=== PATIENT | female | born 1965 | race Caucasian/White ===

== ENCOUNTER 2016-05-27 04:12 | Inpatient (IN) | payer OTHER, MEDICAID ==
[~2016-05-27] VITALS: Ht 165.1 cm; Wt 101.3 kg
--- NOTE | 2016-05-27 04:16 | ED.REPORT ---
HPI-Altered Mental Status Date of Service May 27, 2016 ED Provider: Dr. Manoj Mock M.D. A 51 year old female with a history of bipolar disorder presents to the ED via EMS from [facility] with altered mental status onset approximately 0400 this morning. The patient reports waking up around 0300 feeling totally normal. The staff at her assisted living home then noticed she began slurring her speech and acting abnormally. They measured her BP at 82 systolic. 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 En route the patient was initially mildly hypoxic ( 91%), in sinus rhythm rate 80, with a BP of 103 systolic. She was given 4 mg Zofran by EMS. The patient now reports right-sided weakness, abdominal pain, nausea, and vomiting. She further states that she has had vomiting for about three days. She denies headache. She has had no blood in vomit or stool. No other complaints on pertinent review. She is a very poor historian and reliability is uncertain. Nursing Notes Stated Complaint: CODE STROKE Nursing Notes Reviewed: Yes Allergies: Coded Allergies: Penicillins (Verified Allergy, Unknown, 04/03/13) Uncoded Allergies: NA (Allergy, Unknown, 11/03/03) PCN (Allergy, Unknown, 11/03/03) Penicillin (Allergy, Unknown, 11/03/03) General Time Seen by MD: 04:16 Transferred From: custodial Chief Complaint Decreased responsiveness Hx Obtained From: Patient, EMS Arrived By: Ambulance Sudden in Onset?: Yes Onset Occurred: Just prior to arrival Symptom Duration: Since onset Location: : Abdomen Quality: Painful Severity: Current: Moderate Severity: Maximum: Moderate Associated with: Reports: Weakness, Denies: Fever Pertinent Negative: Relieved by nothing Recent Healthcare: No recent doctor visit Risk Factors NIH Stroke Scale Level of Consciousness: Alert and responsive (0) Ask Month & Age: Both questions right (0) Open/Close Eyes/Hand Explosives Detonator: Performs both tasks (0) Horizontal EO Movements: None (0) Visual Myles: Partial hemianopsia (1) Facial Palsy: Partial paral, lower (2) Right Arm Motor Drift (10s): Drift, not touch bed (1) Left Arm Motor Drift (10s): No drift 10 sec (0) Right Leg Motor Drift (5s): Drift, hits bed (2) Left Leg Motor Drift (5s): No drift 5 sec (0) Limb Ataxia FNF/Heel-Velasquez: Ataxia in 2 limbs (2) Sensation (Arms/Legs/Face): P-prick dull but felt (1) Language Aphasia: No aphasia, normal (0) Dysarthria: Slurring intelligible (1) Extinction/Inattention: No exctinct/inattent (0) NIHSS Score: 10 Time NIHSS Performed: 04:33 Date NIHSS Performed: May 27, 2016 Past Medical History Past Medical History Bipolar disorder Suicidal Ideation Past Surgical History None reported Smoking History Never Smoker Social History Alcohol Use: Denies alcohol use Other Social History: Lives in snf Review of Systems Review of Systems Note: + Facial asymmetry Constitutional: Denies: Fever GI: Reports: Abdominal pain, Nausea, Vomiting Neurologic: Reports: Slurred speech, Weakness (Right-sided ) Psychiatric: Reports: Change mental status Complete sys rev & neg: except as marked. Physical Exam Physical Exam Notes: Initial Vital Signs Vital Signs (First) Date Time Temp Pulse Resp B/P Pulse Ox O2 Delivery O2 Flow Rate FiO2 05/27/16 04:28 36.9 88 14 99/70 98 Nasal Cannula 2 Initial VS: Reviewed Abdomen / GI: Soft, Non-tender Skin: Warm, Dry Psychiatric: Mood/affect normal, Behavior normal, Normal thought content General/Constitutional: Awake, Alert Head / Eyes: Atraumatic, Normocephalic, EOMI Neck: Supple, Full range of motion Respiratory / Chest: Breath sounds NL, Breath sounds = bilat, No respiratory distress Cardiovascular: Heart rate NL, Regular rhythm, Heart sounds NL Neurologic: Oriented X3 Speech: Positive: Slurred (Mild), Negative: Expressive aphasia Focal Weakness: Positive: Weakness diffuse R (Worst in right leg) Sensory Deficit: Positive: Lower extremity L, Upper extremity R Cerebellar Dysfunction: Negative: Ataxia central Right-sided facial droop Left-sided partial hemianopsia Interpretation & Diagnostics Lab Results Interpretation Result Diagram: 05/27/1641905/27/16419 Test 05/27/16 04:20 White Blood Count 6.9th/mm3 (3.8-10.1) Red Blood Count 4.10mil/mm3 (3.90-5.20) Hemoglobin 12.0g/dL (12.0-15.6) Hematocrit 35.4% (35.0-46.0) Mean Corpuscular Volume 86.3fL (81-100) Mean Corpuscular Hemoglobin 29.3pg (27.0-35.0) Mean Corpuscular Hemoglobin Concent 33.9% (32.0-37.0) Red Cell Distribution Width 12.0% (12.3-15.4) Platelet Count 201bil/L (150-400) Neutrophils (%) (Auto) 42.0% (40-74) Lymphocytes (%) (Auto) 45.4% (14-46) Monocytes (%) (Auto) 9.3% (4-12) Eosinophils (%) (Auto) 2.3% (0-5) Basophils (%) (Auto) 0.3% (0-3) Prothrombin Time 10.1sec (8.1-12.5) Prothromb Time International Ratio 0.95ratio Activated Partial Thromboplast Time 28.8sec (22.8-33.0) Sodium Level 128mEq/L (134-144) Potassium Level 3.0mEq/L (3.5-5.2) Chloride Level 89mEq/L (97-108) Carbon Dioxide Level 26mmol/L (18-29) Blood Urea Nitrogen 6mg/dL (6-24) Creatinine 0.73mg/dL (0.57-1.00) Estimat Glomerular Filtration Rate 121mL/min (>59) Glucose Level 122mg/dL (60-99) Calcium Level 8.7mg/dL (8.5-10.1) Total Bilirubin 0.3mg/dL (0.0-1.2) Aspartate Amino Transf (AST/SGOT) 20U/L (0-50) Alanine Aminotransferase (ALT/SGPT) 24U/L (0-32) Alkaline Phosphatase 63U/L (25-150) Troponin T 0.010ug/L (0.0-0.011) Total Protein 6.8g/dL (6.4-8.4) Albumin 4.0g/dL (3.4-5.0) Alcohol, Quantitative < 10mg/dL (0-10) ECG Interpretation ECG Interpretation: Sinus rhythm rate 87 Prolonged QT interval Nonspecific T-wave flattening laterally Time: 04:43 Interpreted by: ED physician X-Ray Chest Interpretation Chest Xray Interpretation: Nothing acute View: Portable, 1 view Interpretation / Wet Read by: Wet read ED physician CT Head Interpretation CONCLUSION: No CT evidence of acute intracranial pathology Critical Test acknowledged at 05/27/2016 4:27 20 AM PST. Verbal report given to Dr. Mock at 05/27/2016 4:27:21 AM PST Radiologist Rashi Muller M.D. Study: Head CT no contrast Interpretation / Wet Read by: Interpret - Radiologist CT Abd / Pelvis Interpretation CONCLUSION: Cholelithiasis without CT evidence of cholecystitis. Diverticulosis without CT evidence of diverticulitis. Transmitted to ED by Rashi Muller M.D. at 05/27/2016 - 5:09:39 AM PST Study type: Abdominal CT no contrast Interpretation / Wet Read by: Interpret - Radiologist Re-Eval/Medical Decision Med Decision/Clinical Course 51-year-old female with bipolar illness presents with new onset right-sided weakness leg worsen arm worse than face. There is also sensory loss, ataxia, and dysarthria. This appears to be consistent with a left middle cerebral artery stroke. Stroke score initially as ten. Risk benefits alternatives discussed at some length with her and she is agreeable to TPA therapy. She complained at that time of the abdominal discomfort, and was urgently placed in the scanner again for a noncontrast abdomen, to be sure that there was not some aortic issue or other abdominal disaster prior to TPA application. That was negative except for gallstones without evidence of cholecystitis, and she was returned to the department promptly and TPA initiated. Needle time was 0523. She complains of scoliosis headache and Tylenol IV was given. She was then taken for her planned CTA of neck and head per protocol. She is admitted now to the ICU purple team and critical condition. Re-Evaluation/Progress #1: Time of Eval: 04:48 Patient Status: Condition improved Re-Evaluation/Progress Note: Discussed with patient possibility for TPA. She wishes to pursue this treatment. Re-Evaluation/Progress #2: Time of Eval: 05:13 Re-Evaluation/Progress Note: Patient rechecked. Discussed with patient CT results, diagnosis, and plan for TPA treatment. Re-Evaluation/Progress #3: Time of Eval: 05:23 Re-Evaluation/Progress Note: TPA administered. Discussed with patient CT, lab, and x-ray results, diagnosis, and plan for admit. Patient agrees with plan for care and all questions were addressed. Consultation : Consulted With: Neurology Call Returned at: 05:22 Filter Plant Operator: Agrees with eval, Agrees with plan Note: [facility]: There are no beds available. Counseled Regarding: Diagnosis, Lab results, Need for admission Patient Discharge & Departure Impression: Primary Impression: Left middle cerebral artery stroke Disposition: ADMITTED TO HOSPITAL Discharge Condition All VS Reviewed: Yes Condition: Critical Referrals: Renita Shannon MD (PCP) Crit Care Except Billable Proc Time Spent: 30-74 minutes (60) Services Performed: Patient management by me, Time spent at bedside, Reviewing test results, Reviewing imaging, Discussing patient care, Documentation in record Scribe Attestation Portions of this note were transcribed by Winnie Man. I, Dr. Mock, personally performed the history, physical exam, and medical decision-making; I reviewed and confirmed the accuracy of the information in the transcribed note. Signed by: Lindy Elkins, 05/27/2016, 06:00 copies to: Renita Shannon MD, Christopher W MD May 27, 2016 04:16 WINNIE MAN May 27, 2016 04:44
[2016-05-27 04:28] VITALS: BP 99/70; PULSE 88; RESP 14; O2SAT 98
[2016-05-27 04:29] LABS: BASOPHILS % (AUTO) 0.3 % (0-3); EOSINOPHILS % (AUTO) 2.3 % (0-5); MONOCYTES % (AUTO) 9.3 % (4-12); Mean Corpuscular Hemoglobin 29.3 pg (27.0-35.0); Mean Corpuscular Volume 86.3 fL (81-100); Platelet Count 201 bil/L (150-400)
[2016-05-27 04:47] LABS: INR 0.95 ratio
[2016-05-27 04:51] LABS: TROPONIN T 0.01 ug/L (0.0-0.011)
[2016-05-27] MEDS ORDERED: Alteplase (No Charge) 1 mg/mL Syringe IV ONE (05:30)
[2016-05-27] MEDS ORDERED: Alteplase (TPA) Inj 81 MG in IV Premix 1 EACH IV ONE (05:31)
[2016-05-27] MEDS ORDERED: Acetaminophen IV 1,000 MG in IV Premix 1 EACH IV ONE (05:50)
[2016-05-27] MEDS ORDERED: 0.9% Sodium Chloride 250 ML ONE (06:20)
[2016-05-27 07:15] VITALS: BP 109/69; PULSE 87; RESP 18; O2SAT 97
[2016-05-27] MEDS ORDERED: Polyethylene Glycol (PEG) 17 Gm Powder PO PRN (07:40)
[2016-05-27] MEDS ORDERED: Ondansetron 2 mg/mL 2 mL Inj IVPUSH PRN (07:40)
[2016-05-27 08:18] VITALS: BP 102/77; PULSE 84; RESP 11; O2SAT 99
[2016-05-27] MEDS ORDERED: BENZ100C8 PO (08:32)
[2016-05-27] MEDS ORDERED: MIRT15TA6 PO (08:32)
[2016-05-27] MEDS ORDERED: CHOL100043 PO (08:32)
[2016-05-27] MEDS ORDERED: KLO5T PO (08:32)
[2016-05-27] MEDS ORDERED: REGULOID PO (08:32)
[2016-05-27] MEDS ORDERED: CITA20TA11 PO (08:32)
[2016-05-27] MEDS ORDERED: HYOS0.1216 PO (08:32)
[2016-05-27] MEDS ORDERED: RISP2TAB3 PO (08:32)
[2016-05-27] MEDS ORDERED: BACL10TA PO (08:32)
[2016-05-27] MEDS ORDERED: MULT-1008 PO (08:32)
[2016-05-27] MEDS ORDERED: OMEP20CA11 PO (08:32)
[2016-05-27] MEDS ORDERED: DONE10TA42 PO (08:32)
[2016-05-27] MEDS ORDERED: LORA10CA PO (08:32)
--- NOTE | 2016-05-27 09:08 | DRSVH ---
PROCEDURE: X-RAY CHEST ONE VIEW, PORTABLE ([id number]) INDICATIONS: SLURRED SPEECH TECHNIQUE: One view of the chest was acquired. COMPARISON: [facility], CR, XR CHEST 2VW, 11/04/2015, 11:59. [facility], CR , CHEST 2VW, 05/31/2013, 20:53. FINDINGS: Surgical changes and devices: None. Lungs and pleura: No pleural effusions or pneumothorax. Lungs are clear. Mediastinum: Mediastinal contours appear normal. Heart size is normal. Bones and chest wall: No suspicious bony lesions. Overlying soft tissues appear unremarkable. IMPRESSION: No acute cardiopulmonary disease. Dictated by: Ran CARBAJAL Interpreted: Liudmila Souza MD on 05/27/2016 at 9:07 Transcribed by: CARMEN on 05/27/2016 at 9:08 Approved by: Liudmila Souza M.D. on 05/27/2016 at 16:54
[2016-05-27] MEDS ORDERED: 0.9% Sodium Chloride 1,000 ML IV SCH (09:25)
[2016-05-27] MEDS ORDERED: KCL IV ONE (09:25)
[2016-05-27] MEDS ORDERED: [UNRECOGNIZED DRUG - OTHER] IV ONE (09:25)
[2016-05-27 09:42] VITALS: BP 122/74; PULSE 74; RESP 11; O2SAT 95
[2016-05-27] MEDS ORDERED: KCl 40 mEq/D5W 500 mL 40 MEQ in IV Premix 500 EACH IV ONE (10:15)
--- NOTE | 2016-05-27 10:42 | DRSVH ---
PROCEDURE: CT BRAIN (TPA) ([id number]) INDICATIONS: SLURRED SPEECH TECHNIQUE: Noncontrast 4.5 mm thick angled axial sections acquired from the foramen magnum to the vertex, with c oronal reformats. COMPARISON: [facility], CT, CT HEAD WO CONTRAST, 04/16/2016, 9:24 PM. FINDINGS: Image quality: Excellent. CSF spaces: Basal cisterns are patent. No extra-axial fluid collections. Ventricles are normal in size and shape. Brain: No midline shift. No intracranial masses or hemorrhage. Villatoro-white matter interface is norm al. Skull and face: Calvarium and visualized facial bones are intact, without suspicious lesions. Sinuses: Visualized sinuses and mastoids are clear. IMPRESSION: 1. No acute intracranial process. This study fulfills neurological imaging criteria for inclusion or exclusion of acute stroke therapie s based on available published neurological imaging guidelines. Dictated by: Liudmila Souza M.D. on 05/27/2016 at 10:39 Approved by: Liudmila Souza M.D. on 05/27/2016 at 10:40
--- NOTE | 2016-05-27 10:54 | DRSVH ---
PROCEDURE: CT ABDOMEN AND PELVIS WITHOUT CONTRAST ([id number]) INDICATIONS: pain TECHNIQUE: Noncontrast 5 mm thick sections acquired from the diaphragms to the symphysis. 5 mm coronal and sagi ttal reformats were then performed. For radiation dose reduction, the following was used: automated exposure control, adjustment of mA and/or kV according to patient size. COMPARISON: [facility], CT, ABD/PELVIS W/CON (PN), 10/15/2013, 20:00. FINDINGS: Image quality: Excellent. ABDOMEN: Lung bases: Lung bases are clear. Heart size is normal. Solid organs: Liver and spleen are normal in size. Gallbladder demonstrates an unchanged prominent calcifications without wall thickening. Pancreas is normal in contours. No adrenal nodules. Kidney s are normal in size, without hydronephrosis or nephrolithiasis. Peritoneum and bowel: Unenhanced bowel loops demonstrate normal wall thickness and caliber. No free fluid or air. Diverticula are present without associated inflammatory change. Nodes and vessels: No retroperitoneal or mesenteric adenopathy by size criteria. Aorta and inferior vena cava are normal in caliber. Miscellaneous: No ventral hernias. PELVIS: Genitourinary: Bladder wall thickness is normal. Miscellaneous: No inguinal hernias or adenopathy. Bones: No suspicious bony lesions. No vertebral body compression fractures. IMPRESSION: 1. Unchanged cholelithiasis without evidence of cholecystitis. 2. Diverticulosis. Dictated by: Liudmila Souza M.D. on 05/27/2016 at 10:40 Approved by: Liudmila Souza M.D. on 05/27/2016 at 10:52
--- NOTE | 2016-05-27 11:03 | DRSVH ---
PROCEDURE: CT ANGIO BRAIN NECK TPA INDICATIONS: headache,given TPA TECHNIQUE: Pre-contrast 4.5 mm thick sections acquired from the foramen magnum to the vertex. After the adminis tration of intravenous contrast, 1 mm thick sections acquired from the aortic arch through the [place]. Post-contrast 4.5 mm thick sections then re-acquired from the foramen magnum to the vert ex. 3-dimensional fjxrkdj-ozbhsfsyh-vbyxgdbjef (MIP) and/or volume rendering reformats were acquired of the central intracranial vasculature and neck separately. For radiation dose reduction, the foll owing was used: automated exposure control, adjustment of mA and/or kV according to patient size. COMPARISON: None. FINDINGS: Image quality: Excellent. The ventricular system and cortical sulci demonstrate atrophy, consistent for the patient's stated ag e. There are areas of hypodensity within the periventricular and subcortical white matter. There is no acute intra-or extra axial fluid collection. No acute hemorrhage, mass lesion or midline shift. Br ainstem is unremarkable. Globes are symmetrical. Sinuses are aerated. Osseous structures are intact. The posterior circulation demonstrates a left vertebral artery dominance. Basilar artery and posterio r cerebral arteries demonstrate no areas of hemodynamically significant stenosis, vascular occlusion or aneurysmal dilation. Posterior communicating arteries are within normal limits. The anterior circulation, including the anterior and middle cerebral arteries, as well as internal ca rotid arteries demonstrates no areas of hemodynamically significant stenosis, vascular occlusion or a neurysmal dilation. The origins of the left and right common, internal and external carotid arteries demonstrate no areas of hemodynamically significant stenosis, vascular occlusion or aneurysmal dilation. Origins of the l eft and right vertebral arteries demonstrate no areas of hemodynamically significant stenosis, vascul ar occlusion or aneurysmal dilation. Aortic arch demonstrates conventional anatomy. Limited, visualiz ed portions subclavian vasculature are unremarkable. IMPRESSION: 1. No acute intracranial process. 2. Mild atrophy and chronic microvascular ischemic changes. 3. No areas of hemodynamically significant stenosis, vascular occlusion or aneurysmal dilation withi n the anterior circulation. 4. No areas of hemodynamically significant stenosis, vascular occlusion or aneurysmal dilation within the posterior circulation. 5. No areas of hemodynamically significant stenosis, vascular occlusion or aneurysmal dilation within the neck vasculature. Dictated by: Liudmila Souza M.D. on 05/27/2016 at 10:56 Approved by: Liudmila Souza M.D. on 05/27/2016 at 11:02
[2016-05-27] MEDS ORDERED: DEXTROSE 5% IV PRN (11:22)
[2016-05-27] MEDS ORDERED: NITROPRUSSIDE IV PRN (11:22)
[2016-05-27] MEDS ORDERED: NiCARdipine Inj 25 MG in Dextrose 5% 240 ML IV PRN (11:22)
[2016-05-27] MEDS ORDERED: hydrALAZINE 20 mg/mL Inj IVPUSH PRN (11:25)
[2016-05-27] MEDS ORDERED: Labetalol 5 mg/mL 4 mL Inj IVPUSH PRN ×2 (11:25)
--- NOTE | 2016-05-27 11:41 | NUR ---
Evaluation completed. Please go to "Notes" then click on "Assessments and Notes" (bottom left corner of screen). Then select appropriate discipline tab on top of screen.
[2016-05-27 13:43] VITALS: BP 125/82; PULSE 92; RESP 13; O2SAT 97
[2016-05-27 14:50] LABS: Magnesium 2.2 mg/dL (1.6-2.6)
[2016-05-27] MEDS: Alum-Mag Hydrox-Simeth 30 mL Suspension PO PRN (15:25)
[2016-05-27] MEDS ORDERED: WAX BOTH_EARS (15:37)
[2016-05-27] MEDS ORDERED: ACET325C PO (15:37)
[2016-05-27] MEDS ORDERED: NPR500T PO (15:37)
[2016-05-27] MEDS ORDERED: DOCU240C41 PO (15:37)
--- NOTE | 2016-05-27 17:19 | PCM.HPMED ---
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 The patient reports waking up around 0300 feeling totally nauseous, as she had been having nausea, abdominal pain, and diarrhea for the past 2 months. The staff at her assisted living home found her vomiting in the bathroom, then noticed she began slurring her speech and acting abnormally. They measured her BP at 82 systolic. 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 En route the patient was initially mildly hypoxic (91%), in sinus rhythm rate 80, with a BP of 103 systolic. In the ER, the patient reported worsening right-sided weakness, abdominal pain, nausea, and vomiting. She further states that she has had vomiting for about three days. She denies headache. She has had no blood in vomit or stool. On admission, she reports right sided facial droop, left arm and leg weakness, bilateral fingertip numbness in all fingers, and slurred speech. She denies having symptoms like this before. She is a poor historian and reliability is uncertain. Her daughter and 2 caretakers are in the room and able to answer questions about history. In the ED, NIH Stroke Scale was 10. BP was 99/70. CBC was normal, Na was 128, K was 3, glucose was 122. Troponin was normal. EtOH was negative. EKG showed sinus rhythm at rate of 87 with QTc 526. CXR showed no acute changes. CT head showed no acute intracranial process. She complained of abdominal pain but a CT abdomen/pelvis was negative for acute process. She was started on tPA at 05:23. Repeat CTA tPA protocol was negative for acute intracranial process and negative for any arterial occlusion. PCP is Dr. Ayah Morales. Review of Systems: Comprehensive review of systems conducted and was negative except for the pertinent positives listed above. Allergies Coded Allergies: Penicillins (Verified Allergy, Unknown, 04/03/13) Uncoded Allergies: NA (Allergy, Unknown, 11/03/03) PCN (Allergy, Unknown, 11/03/03) Penicillin (Allergy, Unknown, 11/03/03) Home Medications Acetaminophen 325 mg BID PRN pain Baclofen 5 mg PO TID Benzonatate 100 mg TID Vitamin D Citalopram 20 mg daily Clonazepam 0.5 - 1 mg qhs PRN anxiety Docusate 100 mg BID Donepezil 10 mg daily Hyoscyamine 0.125 mg with dinner Loratadine 10 mg daily Mirtazapine 15 mg qhs Multivitamin Naproxen 500 mg BID PRN Omeprazole 20 mg BID Risperidone 2 mg qhs PMH Bipolar disorder Drug-induced Parkinson's History of suicidal intention Anxiety and depression Chronic pain Surgical History Hysterectomy Family History Mother - Hypothyroidism, diabetes, [place], stroke Father - Diabetes Grandmother - Hypothyroidism Social History Hx Alcohol Use: Yes (Hx alcohol abuse 20 yearas ago,.) Hx Substance Use: Yes (Distant past) Hx Tobacco Use: Yes Smoking Status: Former Smoker (Quit 5 years ago. 25 pack year history) Exam Vital Signs Vital Sign - Last Date Time Temp Pulse Resp B/P Pulse Ox O2 Delivery O2 Flow Rate FiO2 05/27/16 13:43 37.1 92 13 125/82 97 Room Air 05/27/16 07:15 2 Exam General: Alert, Oriented X3, Cooperative, No Acute Distress Head: Normocephalic, atraumatic. External ears normal. Eyes: Left-sided partial hemianopsia. Pupils reactive to light, EOMI. Anicteric sclerae. Mouth: Mouth Normal, Mucous Membranes Moist/[place] Neck: Neck supple with full range of motion. Chest & Lungs: Clear to auscultation bilaterally with no crackles, wheezes, or rhonchi. Cardiovascular: Regular Rate/Rhythm, Normal S1, Normal S2, No Murmurs/Rubs/ Gallops Abdomen: Non-tender, Non-distended, No masses, Normoactive bowel tones, Soft Musculoskeletal: Normal Range of Motion Extremities: No cyanosis/clubbing/edema bilaterally Neurological: Mildly slurred speech but still conversational. Right facial droop. Left arm weakness with dial maker strength, flexion, and extension. Left leg weakness with dorsiflexion/plantarflexion. Some delay with left hand finger- nose testing. Heel-cordova testing fairly normal but slow due to generalized and focal left leg weakness. 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 Admitted for acute stroke and received tPA. 1. Acute ischemic stroke. Present on admission. - Pt received tPA at 05:23 on 05/27/16. Initial CT and CT stroke protocol were negative for intracranial pathology or arterial occlusion. - Check vital signs and neurologic status every 15 minutes for two hours after tPA, then every 30 minutes for six hours, then every 60 minutes until 24 hours from the start of tPA - Labetalol PRN HTN. Goal BP < 180/105 mmHg during the first 24 hours. - Avoid all anticoagulant and antithrombotic agents, such as heparin, warfarin, or antiplatelet drugs for at least 24 hours after completing tPA - Avoid placement of all catheters (arterial, NG tubes, Foleys) for at least 24 hours - Follow up noncontrast CT or MRI 24 hours after initiating tPA. - Dr. Harris of Neurology has been consulted. We appreciate her input. 2. Electrolyte abnormalities, acute. Present on admission. - Pt presented with Na 128 and K 3. Given her stroke, hyponatremia, and hypokalemia, central diabetes insipidus is a possibility, but she has also had chronic vomiting and diarrhea as well. Will replace potassium as well as careful repletion of sodium and monitor closely. - NS @ 80 ml/hr - KCl 50 meq given - Monitor BMP closely 3. Abdominal pain and diarrhea, chronic. - Pt has been having abdominal pain, N/V/D for 2 months. May consider infectious diarrhea, but given her chronic nature it may be worked up outpatient. 4. GERD, chronic. - Protonix 20 mg daily 5. Bipolar disorder - Continue risperidone 6. Drug-induced Parkinson's - Continue donepezil and hyoscyamine 7. Anxiety and depression - Continue Citalopram, clonazepam, mirtazapine 8. Chronic pain - Continue baclofen 9. History of suicidal intention - Continue to monitor. - Bowel regimen as needed - Antiemetic as needed INPATIENT: Patient is admitted under inpatient status with expected length of stay greater than 2 midnights due to severity of presenting symptoms, risk of adverse event, and complexity of treatment plan. Pain Evaluation: Adequate Pain Control Resuscitation Status: CPR: Attempt Resuscitation Attending Statement The patient was seen and examined together with Dr. Romero on 05/27/2016 and I agree with the history, exam and plan as outlined in the note above. . copies to: Renita Shannon MD, Andrew R May 27, 2016 15:37 Jose Erwin MD May 28, 2016 07:45
--- NOTE | 2016-05-27 17:59 | DRSVH ---
PROCEDURE: MRI BRAIN WITHOUT CONTRAST ([id number]) INDICATIONS: post TPA TECHNIQUE: Noncontrast axial T1 spin echo, axial T2 fast spin echo, sagittal and axial FLAIR, coronal T2 fast sp in echo, axial gradient echo, axial diffusion and ADC through the brain. COMPARISON: [facility], CT, CT ANGIO BRAIN NECK TPA, 05/27/2016, 7:12. [facility], CT, BRAIN (TPA), 05/27/2016, 4:18. FINDINGS: Image quality: Excellent. CSF Spaces: Basal cisterns are patent. No extra-axial fluid collections. Ventricles are normal in size and shape. Brain: No intracranial masses or hemorrhage. Villatoro/white matter interface is normal. Brainstem appe ars normal. Diffusion-weighted images demonstrate no acute ischemic insult. No chronic ischemic ins ults. Normal intravascular flow voids are present. 5 mm left temporal focus of susceptibility artif act is present on gradient sequence. This could represent a small cavernous angioma. Skull and face: Calvarium has normal marrow signal. Orbits appear normal. Sinuses: Sinuses are clear. Mild to moderate bilateral mastoid fluid is present. IMPRESSION: 1. No acute intracranial process. No acute ischemia. 2. Bilateral mastoid fluid. Recommend correlation to mastoiditis. Dictated by: Liudmila Souza M.D. on 05/27/2016 at 17:53 Approved by: Liudmila Souza M.D. on 05/27/2016 at 17:57
--- NOTE | 2016-05-27 19:19 | NUR ---
Admit: Med rec completed with facility provided list. Pt a/o x3, moves all extremities, responds appropriately. Speech is slightly delayed at times, slight R facial droop. Community Service Officer Coordinator equal, equal strength to lower extremities, reports decreased sensation to L toes. C/o chest pressure, ECG unchanged from previous, MD aware, pressure relieved by Maalox. VSS, tele SR, RA O2 sats 98%. Up to BSC with 1p assist, tolerating activity well. Off unit for MRI, report pending. Care ongoing.
[2016-05-27] MEDS: risperiDONE 2 mg Tablet PO SCH (20:13)
[2016-05-27 20:30] VITALS: BP 135/87; PULSE 110; RESP 16; O2SAT 97
--- NOTE | 2016-05-27 23:40 | CONS ---
[address] [address] CONSULTATION REPORT PATIENT: NADEGE GARCÍA : 1965 MR#: [id number] ADMIT: 05/27/2016 JOB ID: [id number] DATE OF SERVICE: 05/27/2016 REQUESTING PHYSICIAN: Dr. Frederick for acute stroke, status post post tPA. HISTORY OF PRESENT ILLNESS: The patient is a 51-year-old female with right weakness although the patient states her weakness was on the left. I rely on the chart notes with the patient providing an inconsistent and spotty history of events. The patient has bipolar disorder and apparent drug-induced parkinsonism. It is unclear what baseline cognitive skills the patient has but notes report that she lives in a care facility. Upon arrival, the patient had emergent evaluation by emergency department staff with NIH stroke scale 10 due to right-sided symptoms of arm, leg and facial weakness, diminished sensation and dysarthria. tPA was given at 5:28 a.m after a head CT was performed and found to be negative. CTA confirmed no large vessel stenosis negating any need for transfer to [facility] for endovascular treatment. Blood pressure on arrival was 109/69 at 7:15 a.m. Further monitoring with sinus tachycardia with rate of 87, She had no side effects. The patient reports that her symptoms resolved but she cannot tell me when. PAST MEDICAL HISTORY: Bipolar disease with history of suicidal ideation. No drugs, alcohol or smoking. DRUG ALLERGIES: PENICILLIN. OUTPATIENT MEDICATIONS: 1. Acetaminophen. 2. Baclofen. 3. . 4. Vitamin D. 5. Citalopram. 6. Clonazepam. 7. Donepezil. 8. Hyoscyamine. 9. Loratadine. 10. Mirtazapine. 11. Naprosyn. 12. Risperidone. 13. Omeprazole. FAMILY HISTORY: Mother with stroke, hypothyroid, diabetes. Father with diabetes. Grandmother with hypothyroidism. SOCIAL HISTORY: The patient has history of alcohol abuse 20 years ago and is a former smoker. PHYSICAL EXAMINATION: The patient is alert and oriented x3, cooperative, in no apparent distress. Vital signs: Blood pressure 125/82, pulse 92, respiratory rate 13, pulse oximetry 97% on room air. Head: Normocephalic, atraumatic. No evidence of carotid bruits. Cardiac: Regular rate and rhythm. S1, S2 present. Minimal edema in the lower extremities. Good pedal pulses. High arch is noted. NEUROLOGIC EXAMINATION: The patient is cooperative with the examiner. She has little memory of the events that she had. No slurred speech. Language and speech intact and fluent. Mood appears to be euthymic with a restricted affect. Cranial nerves: Pupils equally reactive to light and accommodation. Extraocular movements intact. No facial asymmetry. Sensation intact on the face bilaterally. Tongue midline. Palate raises symmetrically. SCM and shoulder shrug as well as hearing appear to be intact bilaterally. Motor strength intact, upper and lower extremities, without atrophy or extra movement. Deep tender reflexes 1+ symmetrically. Plantar reflex flexor. No Shaikh's noted. Tone: Intact to upper and lower extremities. Sensation: Intact to pinprick, soft touch, vibration, proprioception, upper and lower extremities. Coordination: Intact ajrica-fy-ttga and pfrr-yk-exif. Gait: Deferred. The patient is status post tPA. IMAGING STUDIES: MRI: I have personally reviewed the brain MRI on the PAC system. There is no evidence of stroke, currently or previously. CT angio of the brain and neck showed no stenoses. LABORATORY STUDIES: White count normal 6.9, sodium low 128, now corrected to 135. Glucose 122 on admission, now 137. Calcium 9.4. ASSESSMENT AND RECOMMENDATION: The patient is a 51-year-old female, status post tPA after acutely developing slurred speech and right sided weakness following reported abnormal activity at her care facility. Blood pressure was found to be quite low and she was mildly hypoxic by EMS. The patient is an extremely poor historian and much of the history is not obtainable. She believes she may have had a seizure in the past, however, no seizure-like activity was described by EMS or documented in the chart. Further clarification of the patient's symptoms prior to admission may be reasonable now that we know she has a negative MRI of the brain for stroke and no evidence of large-vessel occlusion. The patient received tPA which she tolerated without any side effects. Continued monitoring via the post tPA protocol should be completed including. There is no reason for permissive blood pressure however. If the patient's history of previous seizure and clarification of her symptoms can be obtained, EEG may be reasonable. My partner, Dr. Acosta, will be on-call to read the EEG if needed. Will sign off for now. Thank you for this consultation. LAVINIA
[2016-05-28] VITALS (7 sets, daily range): BP systolic 103–148; BP diastolic 64–89; PULSE 81–100; RESP 16–21; O2SAT 98–100
[2016-05-28] MEDS: Alum-Mag Hydrox-Simeth 30 mL Suspension PO PRN (03:22)
[2016-05-28 05:20] LABS: BASOPHILS % (AUTO) 0.2 % (0-3); EOSINOPHILS % (AUTO) 2.3 % (0-5); MONOCYTES % (AUTO) 10.3 % (4-12); Mean Corpuscular Hemoglobin 28.9 pg (27.0-35.0); Mean Corpuscular Volume 90.5 fL (81-100); NEUTROPHILS % (AUTO) 54.3 % (40-74); Platelet Count 206 bil/L (150-400)
[2016-05-28] MEDS: Pantoprazole 20 mg ER24 Tablet PO SCH (08:07)
[2016-05-28 08:47] LABS: APPEARANCE,URINE HAZY (CLEAR,HAZY); COLOR,URINE STRAW (YELLOW); OCCULT BLOOD,URINE NEGATIVE (NEGATIVE); PH,URINE 6.5 (5.0-8.0); UROBILINOGEN,URINE NORMAL (NORMAL)
--- NOTE | 2016-05-28 12:16 | DRSVH ---
PROCEDURE: CT BRAIN WITHOUT CONTRAST ([id number]) INDICATIONS: CVA, s/p TPA yesterday TECHNIQUE: Noncontrast 4.5 mm thick angled axial sections acquired from the foramen magnum to the vertex, with c oronal reformats. COMPARISON: [facility], CT, BRAIN (TPA), 05/27/2016, 4:18. FINDINGS: Image quality: Excellent. CSF spaces: Basal cisterns are patent. No extra-axial fluid collections. Ventricles are normal in size and shape. Brain: No midline shift. No intracranial masses or hemorrhage. Villatoro-white matter interface is norm al. Skull and face: Calvarium and visualized facial bones are intact, without suspicious lesions. Sinuses: Visualized sinuses and mastoids are clear. IMPRESSION: Reported prior TPA yesterday, no hemorrhage found. Dictated by: Srinivas Marley M.D. on 05/28/2016 at 12:14 Approved by: Srinivas Marley M.D. on 05/28/2016 at 12:14
--- NOTE | 2016-05-28 12:25 | DRSVH ---
[facility] [address] [place] [address] Echocardiogram Report Name: NADEGE GARCÍA MStudy Date: 05/28/2016 Height: 65 in Hospital Exam Location: [facility] Weight: 227 lb Gender: Female BSA: 2.1 m2 : 1965 Age: 51 yrs BP: 110/73 mmHg Reason For Study: STROKE Ordering Physician: HOSPITALIST [facility] Performed By: Ubaldo Marte Referring Physician: Fercho WELLS Interpretation Summary The left ventricle is normal in size. Left ventricular systolic function is normal without focal wall motion abnormalities. The ejection fraction is estimated to be 55-60%. Assessment of diastolic parameters indicates a relaxation abnormality of the left ventricle, consistent with normal filling pressures. The right ventricle is normal in size and function. Pulmonary artery pressures cannot be estimated because of the lack of a measurable TR jet velocity. Both atria are normal in size. [place] Doppler suggests a possible PFO/ASD but injection of contrast documented no interatrial shunt. Consider MAYITO if highly suspicious for embolic CVA/TIA. There is mild aortic regurgitation. There is no other significant valvular heart disease. The aortic root is normal size. Procedure: A two-dimensional transthoracic echocardiogram with color flow and Doppler was performed. The study quality was technically adequate. There is no prior echocardiogram noted for this patient. A saline contrast injection was performed to assess for cardiac shunting. A contrast injection of Definity was performed to improve assessment of LV function. The patient was in normal sinus rhythm during the exam. Left Ventricle: The left ventricle is normal in size. There is normal left ventricular wall thickness. Left ventricular systolic function is normal without focal wall motion abnormalities. The ejection fraction is estimated to be 55-60%. Assessment of diastolic parameters indicates a relaxation abnormality of the left ventricle, consistent with normal filling pressures. Right Ventricle: The right ventricle is normal in size and function. Atria: Both atria are normal in size. Injection of contrast documented no interatrial shunt. Mitral Valve: The mitral valve is normal in structure and function. There is trace mitral regurgitation. Aortic Valve: The aortic valve is trileaflet. The aortic valve opens well. There is mild aortic regurgitation. Tricuspid Valve: The tricuspid valve is normal in structure and function. No tricuspid regurgitation. Pulmonary artery pressures cannot be estimated because of the lack of a measurable TR jet velocity. Pulmonic Valve: The pulmonic valve is not well visualized. There is no pulmonic valvular regurgitation. There is no other significant valvular heart disease. Great Vessels: The aortic root is normal size. The dimensions of the ascending aorta are normal. The pulmonary artery is normal size. The IVC is of normal diameter and collapses less than 50% with a sniff. This suggests a right atrial pressure of 8 mm Hg. Pericardium/ Pleura There is no pericardial effusion. There is no pleural effusion. MMode/2D Measurements & Calculations LVIDd: 5.0 cm LA dimension: 3.4 cm RA long axis Ao root diam LVIDs: 3.3 cm FS: 33.0 % LA A2 area: 15.7 cm RA area Aortic Jxn: 2.7 cm EPSS: 1.0 cm LA A4 area: 20.2 cm asc Aorta Diam IVSd: 0.70 cm LA length (vol) : 17.4 cm LVPWd: 0.94 cm RA vol Ao Arch Diam (Prox LA vol: 52.3 ml : 56.0 ml Trans): 2.9 cm LA vol index RA : 26.8 mm2 IVC diam: 2.0 cm LV parish. diameter/BSA LV sys. diameter/BSA (cm/m^2): 2.4 (cm/m^2): 1.6 Doppler Measurements & Calculations Ao V2 max MV E max dung MV E/A: 0.80 PA V2 max: 91.2 cm/sec : 185.0 cm/sec : 62.0 cm/sec Med Peak E' Dung PA mean P.7 mmHg Ao max PG MV A max dung PA Accel Time : 13.7 mmHg : 77.5 cm/sec E/E' med: 10.5 : 0.11 sec Ao mean PG Lat Peak E' Dung AI P1/2t E/E' lat: 6.9 : 786.4 msec E/e' average AI dec slope Pulm A Revs Dur : 142.1 cm/s2c MV A dur : 0.12 sec MV dec time Ao V2 mean PA V2 mean Pulm A Revs Dur - MV A : 0.27 sec : 134.4 cm/sec : 63.4 cm/sec Dur: -0.06 msec Ao V2 VTI PA pr(Accel) : 36.5 cm : 29.1 mmHg Reading Physician:VENECIA
--- NOTE | 2016-05-28 13:27 | NUR ---
Evaluation completed. Please go to "Notes" then click on "Assessments and Notes" (bottom left corner of screen). Then select appropriate discipline tab on top of screen.
--- NOTE | 2016-05-28 15:08 | DRSVH ---
PROCEDURE: US BILATERAL DUPLEX DOPPLER IMAGING OF THE CAROTIDS ([id number]) INDICATIONS: CVA s/p TPA protocol TECHNIQUE: Color and pulse Doppler interrogation was performed of both carotid systems, with image documentation and velocity measurements. COMPARISON: None. FINDINGS: All stenosis calculations are based on NASCET criteria. Right side: Brachial blood pressure: 141/85 mm Hg. Common Carotid Artery(Distal) PSV: 57.90 cm/s Internal Carotid Artery PSV- Proximal: 91.90 cm/s Mid-lon.70 cm/s Distal: 104.30 cm/s EDV - Proximal: 35.20 cm/s Mid-lon.20 cm/s Distal: 34.60 cm/s External Carotid Artery(Proximal) PSV: 104.90 cm/s ICA/CCA PSV ratio: 1.8 Villatoro scale imaging description: Minimal plaque. Percent internal carotid artery stenosis: Less than 50%. Vertebral artery: Flow direction is antegrade. Left side: Brachial blood pressure: 130/77 mm Hg. Common Carotid Artery(Distal) PSV: 92.10 cm/s Internal Carotid Artery PSV - Proximal: 103.50 cm/s Mid-lon.30 cm/s Distal: 89.80 cm/s EDV - Proximal: 25.40 cm/s Mid-lon.80 cm/s Distal: 30.80 cm/s External Carotid Artery(Proximal) PSV: 115.50 cm/s ICA/CCA PSV ratio: 1.6 Villatoro scale imaging description: Minimal plaque. Percent internal carotid artery stenosis: 50-69% stenosis. Vertebral artery: Flow direction is antegrade. IMPRESSION: 1. 50-69% left internal carotid artery stenosis. 2. Less than 50% right internal carotid artery stenosis. Dictated by: Ran Huffman RR Interpreted: Srinivas Marley MD on 05/28/2016 at 15:05 Transcribed by: GUILHERME on 05/28/2016 at 15:08 Approved by: Srinivas Marley M.D. on 05/28/2016 at 16:21
--- NOTE | 2016-05-28 16:28 | NUR ---
Social Work: Initial Assessment D: Per EMR review, pt is a 51 year old female admitted for [place]/L CVA. Pt is [place] Blind/Disabled with [facility] Medicaid; pt has no LTC insurance or VA Benefits. PCP is Renita Shannon MD. NOK is Bita Gorman, mother, . Identified support person is Sarabjit Herman ([phone]). Advanced directives not completed- information provided by ADVERTISING DIRECTOR. Readmit score is moderate, 4/8. ADVERTISING DIRECTOR met with pt at bedside. Sw role and contact information provided. See initial assessment. Pt lives at [facility]. ADVERTISING DIRECTOR spoke with pt's caregiver, Dinora, at [facility]. They have come to see her at bedside and are willing to accept her back. At baseline the pt is I with ambulation. She requires assistance with showers, medications, chores and overall supervision. Pt uses no DME at base. Pt's room is up a flight of stairs however there is a room she can stay in on the main floor if pt is struggling to ambulate stairs. Pt states her friend, Sarabjit, will provide transportation back to [facility] when ready. Per PT notes, pt does not require ongoing PT and is at her baseline. They are recommending outpatient PT for the pt. A: Pt who lives at [facility] P: Anticipate pt to discharge back to [facility] when medically stable; ADVERTISING DIRECTOR to continue to follow. NICOLE Horan Addendum: 05/28/16 at 1644 by СВЕТЛАНА DELUNA Amended: Links added.
--- NOTE | 2016-05-28 16:51 | NUR ---
Note Patient denied having pain or discomfort throughout the day. Initially patient was assisted to the bedside commode and tolerated the activity well but required one persona to steady her. Progressively during the shift patient gain more strength and was able to walk in the room with no retail assistant manager. Patient was evaluated by PT today and made good progress per PT report. MD discontinued IV fluids- patient was taking PO fluids and meals well and had adequate urine output. Attending MD to consult with neurologist regarding farther care- possible discharge home today or tomorrow per MD statement.
--- NOTE | 2016-05-28 19:33 | PCM.PNMED ---
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 Admitted for acute stroke and received tPA. Today, Ms. St reports that there is no increase in the numbness and tingling in her hands or worsening weakness in her arm or leg. She does not have a headache or vision changes. She has not had diarrhea since being in the hospital. Exam Vital Signs Vital Sign - Last Date Time Temp Pulse Resp B/P Pulse Ox O2 Delivery O2 Flow Rate FiO2 05/28/16 16:04 36.8 81 18 148/89 98 Room Air 05/28/16 07:57 2.00 Intake and Output 05/27/16 05/27/16 05/28/16 Cumulative From/Thru 15:00 23:00 07:00 05/27/16 04:28 - 05/28/16 06:34 Intake Total 2025 ml 925 ml 2950 ml Output Total 2500 ml 1200 ml 3700 ml Balance -2500 ml 825 ml 925 ml -750 ml Intake Oral 1140 ml 1140 ml IV Total 885 ml 925 ml 1810 ml Output Urine Total 2500 ml 1200 ml 3700 ml # Voids 3 2 5 # Bowel Movements 0 0 Exam General: Alert, Oriented X3, Cooperative, No Acute Distress Head: Normocephalic, atraumatic. External ears normal. Eyes: Left-sided partial hemianopsia. Pupils reactive to light, EOMI. Anicteric sclerae. Mouth: Mouth Normal, Mucous Membranes Moist/Grandy Neck: Neck supple with full range of motion. Chest & Lungs: Clear to auscultation bilaterally with no crackles, wheezes, or rhonchi. Cardiovascular: Regular Rate/Rhythm, Normal S1, Normal S2, No Murmurs/Rubs/ Gallops Abdomen: Non-tender, Non-distended, No masses, Normoactive bowel tones, Soft Musculoskeletal: Normal Range of Motion Extremities: No cyanosis/clubbing/edema bilaterally Neurological: Speech is not slurred but is delayed. Right facial droop. Left arm weakness with fibre composite technician strength, flexion, and extension. Left leg weakness with dorsiflexion/plantarflexion. IVs and Medications Medications Reviewed: Medications were reviewed in detail Lab and Diagnostics Result Diagram: 05/28/16 0505 05/28/16 0505 X-Rays, CTs and MRIs PROCEDURE: CT ABDOMEN AND PELVIS WITHOUT CONTRAST IMPRESSION: 1. Unchanged cholelithiasis without evidence of cholecystitis. 2. Diverticulosis. Approved by: Liudmila Souza M.D. on 05/27/2016 at 10:52 PROCEDURE: CT ANGIO BRAIN NECK TPA IMPRESSION: 1. No acute intracranial process. 2. Mild atrophy and chronic microvascular ischemic changes. 3. No areas of hemodynamically significant stenosis, vascular occlusion or aneurysmal dilation within the anterior circulation. 4. No areas of hemodynamically significant stenosis, vascular occlusion or aneurysmal dilation within the posterior circulation. 5. No areas of hemodynamically significant stenosis, vascular occlusion or aneurysmal dilation within the neck vasculature. Approved by: Liudmila Souza M.D. on 05/27/2016 at 11:02 PROCEDURE: MRI BRAIN WITHOUT CONTRAST INDICATIONS: post TPA IMPRESSION: 1. No acute intracranial process. No acute ischemia. 2. Bilateral mastoid fluid. Recommend correlation to mastoiditis. Approved by: Liudmila Souza M.D. on 05/27/2016 at 17:57 PROCEDURE: CT BRAIN WITHOUT CONTRAST IMPRESSION: Reported prior TPA yesterday, no hemorrhage found. Approved by: Srinivas Marley M.D. on 05/28/2016 at 12:14 Cardiac Echo Impressions Echocardiogram Report Interpretation Summary The left ventricle is normal in size. Left ventricular systolic function is normal without focal wall motion abnormalities. The ejection fraction is estimated to be 55-60%. Assessment of diastolic parameters indicates a relaxation abnormality of the left ventricle, consistent with normal filling pressures. The right ventricle is normal in size and function. Pulmonary artery pressures cannot be estimated because of the lack of a measurable TR jet velocity. Both atria are normal in size. [place] Doppler suggests a possible PFO/ASD but injection of contrast documented no interatrial shunt. Consider MAYITO if highly suspicious for embolic CVA/TIA. There is mild aortic regurgitation. There is no other significant valvular heart disease. The aortic root is normal size. Reading Physician: PM Additional Diagnostics PROCEDURE: US BILATERAL DUPLEX DOPPLER IMAGING OF THE CAROTIDS IMPRESSION: 1. 50-69% left internal carotid artery stenosis. 2. Less than 50% right internal carotid artery stenosis. Approved by: Srinivas Marley M.D. 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 Admitted for acute stroke and received tPA. 1. Acute ischemic stroke. Present on admission. Active. - Pt received tPA at 05:23 on 05/27/16. Initial CT and CT stroke protocol were negative for intracranial pathology or arterial occlusion. - Avoid all anticoagulant and antithrombotic agents, such as heparin, warfarin, or antiplatelet drugs for at least 24 hours after completing tPA - Avoid placement of all catheters (arterial, NG tubes, Foleys) for at least 24 hours - Follow up noncontrast CT after initiating tPA today did not show hemorrhage. - Dr. Harris of Neurology has been consulted. We appreciate her input. - Echocardiogram showed [place] Doppler suggests a possible patent [place] or atrial septal defect but contrast documented no interatrial shunt. Will discuss with cardiology tomorrow about pursuing a MAYITO. - Carotid Doppler US showed 50-69% stenosis of the left internal carotid artery and 50% stenosis of the right internal carotid artery - Continue to monitor neurologic status 2. Electrolyte abnormalities, acute. Present on admission. Improved. - Pt presented with Na 128 and K 3. Given her stroke, hyponatremia, and hypokalemia, central diabetes insipidus is a possibility, but she has also had chronic vomiting and diarrhea as well. Will replace potassium as well as careful repletion of sodium and monitor closely. - Normal saline at 80 ml/hr - Potassium chloride 50 meq was given given yesterday - Monitor BMP closely 3. Abdominal pain and diarrhea, chronic. - Pt has been having abdominal pain, N/V/D for 2 months. May consider infectious diarrhea, but given her chronic nature it may be worked up outpatient. She denies diarrhea today. - CT abdomen pelvis showed chronic cholelithiasis and diverticulosis 4. GERD, chronic. - Protonix 20 mg daily 5. Bipolar disorder - Continue risperidone 6. Drug-induced Parkinson's - Continue donepezil and hyoscyamine 7. Anxiety and depression - Continue Citalopram, clonazepam, mirtazapine 8. Chronic pain - Continue baclofen 9. History of suicidal intention - Continue to monitor. - Bowel regimen as needed - Antiemetic as needed INPATIENT: Patient is admitted under inpatient status with expected length of stay greater than 2 midnights due to severity of presenting symptoms, risk of adverse event, and complexity of treatment plan. Possible discharge home tomorrow, pending possible further evaluation with a transesophageal echocardiogram and continued stable neurological status. Resuscitation Status: CPR: Attempt Resuscitation Attending Statement The patient was seen and examined together with Dr. Temple on 05/28/2016 and I agree with the history, exam and plan as outlined in the note above. . Trcay Temple DO May 28, 2016 18:42 Jose Erwin MD May 30, 2016 08:02
[2016-05-28] MEDS: risperiDONE 2 mg Tablet PO SCH (21:50)
[2016-05-29 00:13] VITALS: BP 143/81; PULSE 82; RESP 16; O2SAT 100
[2016-05-29 03:23] LABS: BASOPHILS % (AUTO) 0.2 % (0-3); EOSINOPHILS % (AUTO) 2.4 % (0-5); MONOCYTES % (AUTO) 11.1 % (4-12); Mean Corpuscular Hemoglobin 28.8 pg (27.0-35.0); NEUTROPHILS % (AUTO) 52.3 % (40-74); Platelet Count 221 bil/L (150-400)
[2016-05-29 06:06] VITALS: BP 167/88; PULSE 92; RESP 17; O2SAT 99
[2016-05-29 07:58] VITALS: BP 148/89; PULSE 79; RESP 16; O2SAT 98
[2016-05-29] MEDS: Pantoprazole 20 mg ER24 Tablet PO SCH (08:07)
[2016-05-29 09:07] VITALS: PULSE 93
[2016-05-29] MEDS ORDERED: ASPI-973 PO (11:26)
[2016-05-29] MEDS ORDERED: ATOR20TA65 PO (11:26)
--- NOTE | 2016-05-29 12:18 | PCM.DIMED ---
Tracy Temple DO 05/29/16 1132: Discharge Instructions Date of Service May 29, 2016 Dates of Hospitalization May 27, 2016 at 13:16 Discharge Diagnosis Discharge Diagnosis 1. Acute ischemic stroke. 2. Electrolyte abnormalities 3. Abdominal pain and diarrhea, chronic. 4. Gastroesophageal reflux disease, chronic. 5. Bipolar disorder 6. Drug-induced Parkinson's 7. Anxiety and depression 8. Chronic pain Diet Heart Healthy Activity Limited until seen by PCP Call your provider Fever or Chills, Shortness of breath, Bleeding, Chest pain, Vomitting, Excessive diarrhea, Weakness (unilateral) (worsening), Other (altered mental status) Patient Instructions You are returning to [facility]. I have given you a prescription for atorvastatin 20 mg once daily at bedtime and aspirin 81 mg once daily. Both are for prevention of cardiovascular disease , and they both should be reviewed with your primary care provider about their continued use. Follow up with your primary care provider in 1 week. You may need to have a second ultrasound of your heart, called an transesophageal echocardiogram, to look more closely at the singleton of your heart in the future if there is concern about mini-strokes or strokes. Follow-up Provider: Renita Shannon MD Follow-up with PCP in: 1 week Jose Erwin MD 05/30/16 0805: Discharge Instructions Attending's Statement The patient was seen and examined together with Dr. Temple on 05/29/2016 and I agree with the history, exam and plan as outlined in the note above. . Tracy Temple DO May 29, 2016 11:32 Jose Erwin MD May 30, 2016 08:05
--- NOTE | 2016-05-29 13:18 | NUR ---
DISCHARGE Patient discharged at 1310, left with family who will drive her home. Patient denies pain, shortness of breath and nausea. IV catheter removed intact x2, medications and new Rx reviewed and patient states she understands. Neuro checks are fine, patient given handouts on CVA and new Rx medications.
--- NOTE | 2016-05-30 13:26 | PCM.DC.MED ---
Discharge Summary Date of Service May 29, 2016 Dates of Hospitalization Date of Hospital Admission May 27, 2016 at 13:16 Date of Discharge: May 29, 2016 Providers: Admitting Physician: Jose Erwin MD Primary Care Physician: Renita Shannon MD Attending Physician: Jose Erwin MD Diagnosis at Time of Discharge Diagnosis at Time of Discharge 1. Acute ischemic stroke. 2. Electrolyte abnormalities, acute. 3. Abdominal pain and diarrhea, chronic. 4. Gastroesophageal reflux disease, chronic. 5. Bipolar disorder 6. Drug-induced Parkinson's 7. Anxiety and depression 8. Chronic pain 9. History of suicidal intention Procedures XRay, CTs & MRIs PROCEDURE: CT ABDOMEN AND PELVIS WITHOUT CONTRAST IMPRESSION: 1. Unchanged cholelithiasis without evidence of cholecystitis. 2. Diverticulosis. Approved by: Liudmila Souza M.D. on 05/27/2016 at 10:52 PROCEDURE: CT ANGIO BRAIN NECK TPA IMPRESSION: 1. No acute intracranial process. 2. Mild atrophy and chronic microvascular ischemic changes. 3. No areas of hemodynamically significant stenosis, vascular occlusion or aneurysmal dilation within the anterior circulation. 4. No areas of hemodynamically significant stenosis, vascular occlusion or aneurysmal dilation within the posterior circulation. 5. No areas of hemodynamically significant stenosis, vascular occlusion or aneurysmal dilation within the neck vasculature. Approved by: Liudmila Souza M.D. on 05/27/2016 at 11:02 PROCEDURE: MRI BRAIN WITHOUT CONTRAST INDICATIONS: post TPA IMPRESSION: 1. No acute intracranial process. No acute ischemia. 2. Bilateral mastoid fluid. Recommend correlation to mastoiditis. Approved by: Liudmila Souza M.D. on 05/27/2016 at 17:57 PROCEDURE: CT BRAIN WITHOUT CONTRAST IMPRESSION: Reported prior TPA yesterday, no hemorrhage found. Approved by: Srinivas Marley M.D. on 05/28/2016 at 12:14 Cardiac Echo Impression Echocardiogram Report Interpretation Summary The left ventricle is normal in size. Left ventricular systolic function is normal without focal wall motion abnormalities. The ejection fraction is estimated to be 55-60%. Assessment of diastolic parameters indicates a relaxation abnormality of the left ventricle, consistent with normal filling pressures. The right ventricle is normal in size and function. Pulmonary artery pressures cannot be estimated because of the lack of a measurable TR jet velocity. Both atria are normal in size. [place] Doppler suggests a possible PFO/ASD but injection of contrast documented no interatrial shunt. Consider MAYITO if highly suspicious for embolic CVA/TIA. There is mild aortic regurgitation. There is no other significant valvular heart disease. The aortic root is normal size. Reading Physician: PM Other Diagnostics PROCEDURE: US BILATERAL DUPLEX DOPPLER IMAGING OF THE CAROTIDS IMPRESSION: 1. 50-69% left internal carotid artery stenosis. 2. Less than 50% right internal carotid artery stenosis. Approved by: Srinivas Marley M.D. on 05/28/2016 at 16:21 Brief History From the history and physical performed by Dr. Anatoliy Romero on 05/27/2016: Patient is a 51 year old female with a history of bipolar disorder and reported drug-induced Parkinson's who presents to the ED via EMS from [facility] with altered mental status onset approximately 0400 this morning. The patient reports waking up around 0300 feeling totally nauseous, as she had been having nausea, abdominal pain, and diarrhea for the past 2 months. The staff at her assisted living home found her vomiting in the bathroom, then noticed she began slurring her speech and acting abnormally. They measured her BP at 82 systolic. EMS found the patient disoriented to the year, with facial asymmetry but equal telemarketing fundraiser and no pronator drift. En route the patient was initially mildly hypoxic (91%), in sinus rhythm rate 80, with a BP of 103 systolic. In the ER, the patient reported worsening right-sided weakness, abdominal pain, nausea, and vomiting. She further states that she has had vomiting for about three days. She denies headache. She has had no blood in vomit or stool. On admission, she reports right sided facial droop, left arm and leg weakness, bilateral fingertip numbness in all fingers, and slurred speech. She denies having symptoms like this before. She is a poor historian and reliability is uncertain. Her daughter and 2 caretakers are in the room and able to answer questions about history. In the ED, NIH Stroke Scale was 10. BP was 99/70. CBC was normal, Na was 128, K was 3, glucose was 122. Troponin was normal. EtOH was negative. EKG showed sinus rhythm at rate of 87 with QTc 526. CXR showed no acute changes. CT head showed no acute intracranial process. She complained of abdominal pain but a CT abdomen/pelvis was negative for acute process. She was started on tPA at 05:23. Repeat CTA tPA protocol was negative for acute intracranial process and negative for any arterial occlusion. PCP is Dr. Ayah Morales. Hospital Course Patient is a 51 year old female with a history of bipolar disorder and reported drug-induced Parkinson's who presents nausea, vomiting, slurred speech, right sided facial droop, left arm and leg weakness, and bilateral fingertip numbness. Admitted for acute stroke and received tPA. 1. Acute ischemic stroke. Present on admission. Active. - Pt received tPA at 05:23 on 05/27/16. Initial CT and CT stroke protocol were negative for intracranial pathology or arterial occlusion. - Avoided all anticoagulant and antithrombotic agents, such as heparin, warfarin , or antiplatelet drugs for at least 24 hours after completing tPA - Follow up noncontrast CT brain the day after initiating tPA did not show hemorrhage. - Patient had improvement of slurred speech and did not have progression of neurological deficits. - Carotid Doppler ultrasound showed 50-69% stenosis of the left internal carotid artery and 50% stenosis of the right internal carotid artery. - Echocardiogram showed Color Doppler suggested a possible patent [place] or atrial septal defect but contrast documented no interatrial shunt. Consider a transesophageal echocardiogram as an outpatient if continued concern about transient ischemic attacks or cerebrovascular accidents. - Dr. Harris of Neurology consulted. We appreciated her input. She recommended an EEG if there is continued concern about an underlying seizure disorder. Consider an EEG as an outpatient. - Physical therapy recommended possible further physical therapy for continued balance development as an outpatient. 2. Electrolyte abnormalities, acute. Present on admission. Resolved. - Pt presented with sodium 128 and potassium 3. - Normal saline was initially given at 80 ml/hr - Potassium chloride 50 meq was given - Monitored metabolic panel and hyponatremia and hypokalemia resolved. 3. Abdominal pain and diarrhea, chronic. - Pt had been having abdominal pain, nausea, vomiting, and diarrhea for 2 months. She denied nausea, vomiting, and diarrhea during hospital stay. - CT abdomen pelvis showed chronic cholelithiasis and diverticulosis 4. Gastroesophageal reflux disease, chronic. - Pantoprazole 20 mg daily was given 5. Bipolar disorder - Continued risperidone 6. Drug-induced Parkinson's - Continued donepezil and hyoscyamine 7. Anxiety and depression - Continued citalopram, clonazepam, mirtazapine 8. Chronic pain - Continued baclofen 9. History of suicidal intention - Continued to monitor Exam Vital Signs (Last) Date Time Temp Pulse Resp B/P Pulse Ox O2 Delivery O2 Flow Rate FiO2 05/29/16 09:07 93 05/29/16 07:58 36.6 16 148/89 98 Room Air 05/29/16 00:13 2.00 Exam General: Alert, Oriented X3, Cooperative, No Acute Distress Head: Normocephalic, atraumatic. External ears normal. Eyes: Left-sided partial hemianopsia. Pupils reactive to light, EOMI. Anicteric sclerae. Mouth: Mouth Normal, Mucous Membranes Moist/[place] Neck: Neck supple with full range of motion. Chest & Lungs: Clear to auscultation bilaterally with no crackles, wheezes, or rhonchi. Cardiovascular: Regular Rate/Rhythm, Normal S1, Normal S2, No Murmurs/Rubs/ Gallops Abdomen: Non-tender, Non-distended, No masses, Normoactive bowel tones, Soft Musculoskeletal: Normal Range of Motion Extremities: No cyanosis/clubbing/edema bilaterally Neurological: Speech is not slurred but is delayed. Right facial droop. Left arm weakness with ocular care aide strength. Left leg weakness with dorsiflexion/ plantarflexion. Test 05/27/16 04:20 05/27/16 08:50 05/27/16 12:00 05/29/16 03:03 Prothrombin Time 10.1sec (8.1-12.5) Prothromb Time International Ratio 0.95ratio Activated Partial Thromboplast Time 28.8sec (22.8-33.0) Hemoglobin A1c 5.5% (4.8-5.6) Troponin T 0.010ug/L (0.0-0.011) Alcohol, Quantitative < 10mg/dL (0-10) Urine Color Straw (YELLOW) Urine Appearance Hazy (CLEAR,HAZY) Urine pH 6.5 (5.0-8.0) Urine Specific [place] 1.005 (1.003-1.035) Urine Protein Negativemg/dL (NEG,TRACE) Urine Glucose (UA) Negativemg/dL (NEGATIVE) Urine Ketones Negativemg/dL (NEGATIVE) Urine Occult Blood Negative (NEGATIVE) Urine Nitrite Negative (NEGATIVE) Urine Bilirubin Negative (NEGATIVE) Urine Urobilinogen Normalmg/dL (NORMAL) Urine Leukocyte Esterase Negative (NEGATIVE) Urine RBC 0-2/hpf (0-2) Urine WBC 0-5/hpf (0-5) Urine Epithelial Cells Occasional/hpf (NONE-MOD) Urine Crystals None seen (NONE SEEN) Urine Bacteria Few/hpf (NONE-FEW) Urine Hyaline Casts None/lpf (NONE) Urine Granular Casts None seen (NONE SEEN) Urine Waxy Casts None seen (NONE SEEN) Urine Red Blood Cell Casts None seen (NONE SEEN) Urine White Blood Cell Casts None seen (NONE SEEN) Urine Mucus None seen (None Seen) Urine Trichomonas None seen (NONE SEEN) Urine Yeast None (NONE SEEN) Urinalysis Comment None Urine Culture Reflexed Not indicated Hold Urine Received (Received) Magnesium Level 2.2mg/dL (1.6-2.6) Prealbumin 21mg/dL (20-40) White Blood Count 5.3th/mm3 (3.8-10.1) Red Blood Count 4.16mil/mm3 (3.90-5.20) Hemoglobin 12.0g/dL (12.0-15.6) Hematocrit 36.2% (35.0-46.0) Mean Corpuscular Volume 87.0fL (81-100) Mean Corpuscular Hemoglobin 28.8pg (27.0-35.0) Mean Corpuscular Hemoglobin Concent 33.1% (32.0-37.0) Red Cell Distribution Width 12.9% (12.3-15.4) Platelet Count 221bil/L (150-400) Neutrophils (%) (Auto) 52.3% (40-74) Lymphocytes (%) (Auto) 33.4% (14-46) Monocytes (%) (Auto) 11.1% (4-12) Eosinophils (%) (Auto) 2.4% (0-5) Basophils (%) (Auto) 0.2% (0-3) Sodium Level 140mEq/L (134-144) Potassium Level 4.4mEq/L (3.5-5.2) Chloride Level 100mEq/L (97-108) Carbon Dioxide Level 29mmol/L (18-29) Blood Urea Nitrogen 7mg/dL (6-24) Creatinine 0.65mg/dL (0.57-1.00) Estimat Glomerular Filtration Rate 138mL/min (>59) Glucose Level 95mg/dL (60-99) Calcium Level 9.4mg/dL (8.5-10.1) Total Bilirubin 0.2mg/dL (0.0-1.2) Aspartate Amino Transf (AST/SGOT) 16U/L (0-50) Alanine Aminotransferase (ALT/SGPT) 21U/L (0-32) Alkaline Phosphatase 59U/L (25-150) Total Protein 6.5g/dL (6.4-8.4) Albumin 4.0g/dL (3.4-5.0) Discharge Medications Discharge Medications ([reguloid powder ]) 1 TBS PO DAILY (Reported) ([ear wax drops]) 2-3 GTT BOTH_EARS BID (Reported) Aspirin (Aspirin) 81 Mg Tablet 81 MG PO DAILY Prescribed by: ARNEL TEMPLE DO Atorvastatin Calcium (Atorvastatin Calcium) 20 Mg Tablet 20 MG PO DAILY Prescribed by: ARNEL TEMPLE DO Baclofen (Baclofen) 10 Mg Tablet 5 MG PO TID (Reported) Benzonatate (Benzonatate) 100 Mg Capsule 100 MG PO TID (Reported) Cholecalciferol (Vitamin D3) (Vitamin D) 1,000 Unit Tablet 2,000 UNIT PO DAILY ( Reported) Citalopram (Citalopram) 20 Mg Tablet 20 MG PO DAILY (Reported) Donepezil (Donepezil) 10 Mg Tablet 10 MG PO DAILYWM (Reported) Hyoscyamine (Hyoscyamine) 0.125 Mg Tablet 0.125 MG PO ACHS (Reported) Loratadine (Claritin) 10 Mg Capsule 10 MG PO DAILY (Reported) Mirtazapine (Mirtazapine) 15 Mg Tablet 15 MG PO HS (Reported) Multivitamin/Iron/Folic Acid (Sentry Tablet) 1 Each Tablet 1 EACH PO DAILY ( Reported) Omeprazole (Omeprazole) 20 Mg Capsule.dr 20 MG PO BID (Reported) Risperidone (Risperidone) 2 Mg Tablet 2 MG PO HS (Reported) As needed Acetaminophen (Acetaminophen) 325 Mg Capsule 325 MG PO BID PRN PRN For Pain ( Reported) Clonazepam (Clonazepam) 0.5 Mg Tablet 0.5-1 MG PO HS PRN PRN For Anxiety ( Reported) Docusate Calcium (Stool Softener) 240 Mg Capsule 100 MG PO BID PRN PRN For Constipation (Reported) Naproxen (Naproxen) 500 Mg Tab 500 MG PO BID PRN PRN For Pain (Reported) Time spent Greater than 30 minutes was spent in preparation of discharge with greater than 50% of that time dedicated to patient counseling and coordination of care. . Attending Statement The patient was seen and examined together with Dr. Temple on 05/29/2016 and I agree with the history, exam and plan as outlined in the note above. . copies to: Renita Shannon MD, Marissa L DO May 29, 2016 11:46 Jose Erwin MD Jun 12, 2016 15:57
== END 2016-05-29 13:06 | disposition home or self-care (01) | DRG 62 ==
LOC: SED 04:12 → EDBD 04:12 → CCU 13:16 → PCC 05-28 10:00
PROVIDERS: ADMIT Internal Medicine; ATTEND Internal Medicine
DX: I63.9 Cerebral infarction, unspecified (principal); E87.1 Hypo-osmolality and hyponatremia; G21.19 Other drug induced secondary parkinsonism; G81.91 Hemiplegia, unspecified affecting right dominant side; R29.710 NIHSS score 10; F31.9 Bipolar disorder, unspecified; Z87.891 Personal history of nicotine dependence; E87.6 Hypokalemia; R19.7 Diarrhea, unspecified; R10.9 Unspecified abdominal pain; K21.9 Gastro-esophageal reflux disease without esophagitis; G89.29 Other chronic pain; R47.81 Slurred speech; R11.2 Nausea with vomiting, unspecified; R29.810 Facial weakness; F41.9 Anxiety disorder, unspecified

== ENCOUNTER 2016-07-03 19:37 | Emergency (ER) | payer MEDICAID, OTHER ==
[~2016-07-03 19:37] MED LIST: ACET325C PO; ASPI-973 PO; ATOR20TA65 PO; BACL10TA PO; BENZ100C8 PO; CHOL100043 PO; CITA20TA11 PO; DOCU240C41 PO; DONE10TA42 PO; HYOS0.1216 PO; KLO5T PO; LORA10CA PO; MIRT15TA6 PO; MULT-1008 PO; NPR500T PO; OMEP20CA11 PO; REGULOID PO; RISP2TAB3 PO; WAX BOTH_EARS
[2016-07-03 19:38] VITALS: BP 135/62; PULSE 81; RESP 14; O2SAT 96
[2016-07-03 20:00] LABS: BASOPHILS % (AUTO) 0.3 % (0-3); EOSINOPHILS % (AUTO) 2.9 % (0-5); MONOCYTES % (AUTO) 10.7 % (4-12); Mean Corpuscular Hemoglobin 28.7 pg (27.0-35.0); Mean Corpuscular Volume 87.3 fL (81-100); NEUTROPHILS % (AUTO) 56.9 % (40-74); Platelet Count 196 bil/L (150-400)
--- NOTE | 2016-07-03 20:02 | DRSVH ---
PROCEDURE: X-RAY CHEST ONE VIEW, PORTABLE ([id number]) INDICATIONS: 51-year-old female with chest pain. TECHNIQUE: One view of the chest was acquired. COMPARISON: [facility], CR, XR CHEST 1VW (PORTABLE), 05/27/2016, 4:19. [facility], XR CHEST 2VW, 11/04/2015, 11:[address]. [facility], CR, CHEST 2VW, 05/31/2013, 20:53. FINDINGS: Surgical changes and devices: None. Lungs and pleura: No pleural effusions or pneumothorax. Lungs are clear. Mediastinum: Mediastinal contours appear normal. Heart size is normal. Bones and chest wall: No suspicious bony lesions. Overlying soft tissues appear unremarkable. IMPRESSION: No acute cardiopulmonary disease. Dictated by: Wilner Ring M.D. on 07/03/2016 at 20:01 Approved by: Wilner Rign M.D. on 07/03/2016 at 20:01
--- NOTE | 2016-07-03 20:07 | ED.REPORT ---
HPI-Chest Pain 40 and Over Date of Service Jul 03, 2016 ED Provider: Dr. Niko Rivera is a 51 y/o female w/ a hx of Parkinson's disease, CVA, mental illness, presenting to the ED via EMS from assisted living c/o CP onset this morning. She states she became lightheaded and dizzy while she was speaking with a caregiver. She has also been experiencing sharp, aching chest pain all day today. She has never experienced this previously. She denies anxiety, SOB, fever , chills, cough, focal numbness/weakness, speech change, vision change. Nursing Notes Stated Complaint: CHEST PAIN Chief Complaint: Chest Pain Nursing Notes Reviewed: Yes Allergies: Coded Allergies: Penicillins (Verified Allergy, Unknown, 07/03/16) Scheduled ([reguloid powder ]) 1 TBS PO DAILY ([ear wax drops]) 2-3 GTT BOTH_EARS BID Aspirin (Aspirin) 81 Mg Tablet 81 MG PO DAILY Atorvastatin Calcium (Atorvastatin Calcium) 20 Mg Tablet 20 MG PO DAILY Baclofen (Baclofen) 10 Mg Tablet 5 MG PO TID Benzonatate (Benzonatate) 100 Mg Capsule 100 MG PO TID Cholecalciferol (Vitamin D3) (Vitamin D) 1,000 Unit Tablet 2,000 UNIT PO DAILY Citalopram (Citalopram) 20 Mg Tablet 20 MG PO DAILY Donepezil (Donepezil) 10 Mg Tablet 10 MG PO DAILYWM Hyoscyamine (Hyoscyamine) 0.125 Mg Tablet 0.125 MG PO ACHS Loratadine (Claritin) 10 Mg Capsule 10 MG PO DAILY Mirtazapine (Mirtazapine) 15 Mg Tablet 15 MG PO HS Multivitamin/Iron/Folic Acid (Sentry Tablet) 1 Each Tablet 1 EACH PO DAILY Omeprazole (Omeprazole) 20 Mg Capsule.dr 20 MG PO BID Risperidone (Risperidone) 2 Mg Tablet 2 MG PO HS Scheduled PRN Acetaminophen (Acetaminophen) 325 Mg Capsule 325 MG PO BID PRN PRN For Pain Clonazepam (Clonazepam) 0.5 Mg Tablet 0.5-1 MG PO HS PRN PRN For Anxiety Docusate Calcium (Stool Softener) 240 Mg Capsule 100 MG PO BID PRN PRN For Constipation Naproxen (Naproxen) 500 Mg Tab 500 MG PO BID PRN PRN For Pain General Time Seen by MD: 20:07 Chief Complaint Chest pain Hx Obtained From: Patient, EMS Arrived By: Ambulance Sudden in Onset?: No Onset Occurred: 9 - 12 hours ago Symptom Duration: Since onset Location: : Chest left: Chest right Quality: Aching, Sharp Radiation: : Does not radiate Severity: Current: Mild Severity: Maximum: Moderate Similar Sx Previous: No Past Medical History Past Medical History CVA 05/27/16, Parkinson's disease, Headaches, Asthma, GERD, Bipolar disorder, Panic disorder, Depression, Anxiety, Suicide attempt, Prior alcohol abuse, Psychiatric hospitalization, Past Surgical History Hysterectomy Smoking History Former Smoker Social History Alcohol Use: Denies alcohol use Drug Use: Denies drug use Other Social History: Lives in assisted Review of Systems Constitutional: Denies: Chills, Fever Respiratory: Denies: Non-productive cough, Shortness of breath Cardiovascular: Reports: Chest pain, Denies: Dyspnea on exertion GI: Denies: Abdominal pain, Diarrhea, Nausea, Vomiting Neurologic: Reports: Dizziness, Lightheaded, Denies: Change LOC, Confusion, Focal weakness, Numbness, Seizure, Slurred speech, Unable to speak, Vision change Psychiatric: Denies: Anxiety, Change mental status Complete sys rev & neg: except as marked. Physical Exam Initial Vital Signs Vital Signs (First) Date Time Temp Pulse Resp B/P Pulse Ox O2 Delivery O2 Flow Rate FiO2 07/03/16 19:38 37.4 81 14 135/62 96 Room Air Initial VS: Reviewed, Vital signs normal Head / Eyes: Atraumatic, Normocephalic, PERRL ENT: Mucous membranes moist, Conjunctiva normal, No scleral icterus Neck: Supple, Full range of motion Extremities: Vascular intact, Neuro intact, No swelling, No tenderness Skin: Warm, Dry, No cyanosis Psychiatric: Mood/affect normal, Behavior normal, Normal thought content General/Constitutional: Awake, Alert, No acute distress, Well appearing, Cooperative, Not toxic appearing Respiratory / Chest: Atraumatic, Breath sounds NL, Breath sounds = bilat, No respiratory distress, No rales, No rhonchi, No wheezing, No retractions, No stridor, No chest tenderness, No chest wall deformity, No crepitus Cardiovascular: Heart rate NL, Regular rhythm, Heart sounds NL, No gallop, No murmurs, No rubs, Cap refill not delayed, Peripheral circulation NL Abdomen: Atraumatic, Soft, Non-tender, No guarding, No rebound, No distention, No palpable mass Neurologic: Oriented X3, Speech NL, No motor deficits, No sensory deficits, CN II - XII intact, Cerebellar NL, Memory NL No change from baseline Interpretation & Diagnostics Lab Results Interpretation Result Diagram: 07/03/16194107/03/161941 Test 07/03/16 19:42 07/03/16 20:10 07/04/16 00:05 White Blood Count 6.0th/mm3 (3.8-10.1) Red Blood Count 4.18mil/mm3 (3.90-5.20) Hemoglobin 12.0g/dL (12.0-15.6) Hematocrit 36.5% (35.0-46.0) Mean Corpuscular Volume 87.3fL (81-100) Mean Corpuscular Hemoglobin 28.7pg (27.0-35.0) Mean Corpuscular Hemoglobin Concent 32.9% (32.0-37.0) Red Cell Distribution Width 12.6% (12.3-15.4) Platelet Count 196bil/L (150-400) Neutrophils (%) (Auto) 56.9% (40-74) Lymphocytes (%) (Auto) 28.9% (14-46) Monocytes (%) (Auto) 10.7% (4-12) Eosinophils (%) (Auto) 2.9% (0-5) Basophils (%) (Auto) 0.3% (0-3) Sodium Level 133mEq/L (134-144) Potassium Level 3.8mEq/L (3.5-5.2) Chloride Level 93mEq/L (97-108) Carbon Dioxide Level 25mmol/L (18-29) Blood Urea Nitrogen 7mg/dL (6-24) Creatinine 0.73mg/dL (0.57-1.00) Estimat Glomerular Filtration Rate 121mL/min (>59) Glucose Level 93mg/dL (60-99) Calcium Level 9.6mg/dL (8.5-10.1) Magnesium Level 1.9mg/dL (1.6-2.6) Total Bilirubin 0.3mg/dL (0.0-1.2) Aspartate Amino Transf (AST/SGOT) 22U/L (0-50) Alanine Aminotransferase (ALT/SGPT) 27U/L (0-32) Alkaline Phosphatase 74U/L (25-150) Total Protein 7.3g/dL (6.4-8.4) Albumin 4.1g/dL (3.4-5.0) Hold Urine Received (Received) Troponin T 0.010ug/L (0.0-0.011) ECG Interpretation ECG Interpretation: Sinus rhythm rate 79 Old inferior infarct Time: 21:18 Interpreted by: ED physician Normal ECG Interpretation: No acute ischemic changes, No change from prior ECGs ECG Interpretation: Sinus rhythm rate 74 Old inferior infarct No change from prior Time: 22:51 Interpreted by: ED physician Normal ECG Interpretation: No acute ischemic changes, No change from prior ECGs X-Ray Chest Interpretation Chest Xray Interpretation: IMPRESSION: No acute cardiopulmonary disease. Dictated by: Wilner Ring M.D. on 07/03/2016 at 20:01 Approved by: Wilner Ring M.D. on 07/03/2016 at 20:01 View: Portable, 1 view Interpretation / Wet Read by: Interpret - Radiologist CT Chest Interpretation Conclusion: No PE. Partially seen cholelithiasis. Transmitted to the ED by Dr. Cabrera Study type: CT pulm angiogram Interpretation / Wet Read by: Interpret - Radiologist Re-Eval/Medical Decision Med Decision/Clinical Course Paola is very hesitant to be admitted to the hospital. She does not agree to be admitted for observation and a stress test. I can respect that. Her pain seems to be muscular skeletal or perhaps gastrointestinal in nature. Either way [place] seems unlikely with her EKG in [place] troponins and the atypical nature of her pain. Pulmonary and has been ruled out. She does not gallstones so perhaps that is what she is feeling. She did agree to stick around for 2 troponins. These of the normal. I will discharge her with a short course of Gentry for the pain because the pain seems to me from her right upper quadrant into her chest. Perhaps this is symptomatically the physis. Certainly no signs of acute cholecystitis. I do not feel that emergent ultrasound is indicated now but I will set her up for outpatient follow-up for next week. She is very pleased with her care and disposition. She does agree to return if she has any problems or any new or worsening symptoms. Routine opiate, chest pain and abdominal pain with gallstones after care instructions given. Time of Eval: 00:02 Re-Evaluation/Progress Note: Pt rechecked. She does state that her chest pain seems to eminate from the RUQ. She would prefer to see a surgeon on an outpatient basis. Her abdomen is soft and non-tender. Plan to d/c if trop is negative. Informed pt of plan for treatment. Pt understands and agrees with plan for treatment. F/U instructions and RTER warnings given. All questions addressed. Counseled Regarding: Diagnosis, Lab results, Need for follow-up, When/why to return to ED Discharge & Departure Primary Impression: Cholelithiasis Cholelithiasis location: gallbladder Cholecystitis presence: without cholecystitis Biliary obstruction: without biliary obstruction Qualified Code : K80.20 - Calculus of gallbladder without cholecystitis without obstruction Additional Impression: Chest pain Chest pain type: unspecified Qualified Code: R07.9 - Chest pain, unspecified Disposition: Home Discharge Condition All VS Reviewed: Yes Condition: Stable Patient Instructions: Chest Pain (ED), Cholelithiasis (GEN) Additional Instructions: Heart enzymes were normal. There was no blood clot identified on the chest scan. You do have gallstones. Perhaps your feeling gallstones is causing your pain. You may take one Gentry every 6 hours as needed for pain. However if the chest pain last more than 10 minutes then you need you to be seen right away. If you ever break out in cold sweat or if you become short of breath or have any new or worsening symptoms then you need to come back right away. I would call your doctor on Tuesday as well as referral surgical clinic for an evaluation. Do not drive or drink alcohol or consume acetaminophen taking the Gentry. Do not hesitate to return if any problems or any new or worrisome symptoms. Referrals: Renita Shannon MD (PCP) Chance Douglas MD Attestation Portions of this note were transcribed by Eduar Garza. I, Dr. Pope personally performed the history, physical exam and medical decision-making; I reviewed and confirmed the accuracy of the information in the transcribed note. Signed by Lindy Lam, 07/03/162029 copies to: Renita Shannon MD, Todd P DO Jul 03, 2016 20:07 EDUAR GARZA Jul 03, 2016 20:25
[2016-07-03 20:23] LABS: Magnesium 1.9 mg/dL (1.6-2.6); TROPONIN T < 0.010 ug/L (0.0-0.011)
--- NOTE | 2016-07-03 22:17 | DRSVH ---
PROCEDURE: CT ANGIO CHEST PULMONARY EMBOLISM ([id number]) INDICATIONS: 51-year-old female with sharp chest pain and near syncope. TECHNIQUE: After the administration of intravenous contrast, 2 mm thick sections acquired from the pulmonary api octavia to the posterior costophrenic angles. 3-dimensional maximum intensity projection (MIP) coronal a nd sagittal reformats were then acquired through the thorax. For radiation dose reduction, the follo wing was used: automated exposure control, adjustment of mA and/or kV according to patient size. COMPARISON: [facility], CT, CT ABD PELVIS WO CON, 05/27/2016, 5:02. FINDINGS: Image quality: Excellent. Pulmonary arteries: Pulmonary arteries are normal in size, and demonstrate no intraluminal filling d efects to suggest central pulmonary embolism. Lungs and pleura: Lungs are clear. No pleural effusions or pneumothorax. Central and peripheral ai rways are patent. Mediastinum: Heart size is normal, without pericardial effusion. No mediastinal or hilar adenopathy . Thoracic aorta is normal in caliber and enhancement. Esophagus is normal in caliber, without hiat al hernia. Bones and chest wall: No suspicious bony lesions. Ribs and thoracic spine appear intact throughout. Thyroid gland is normal in size . No axillary or supraclavicular adenopathy. Abdomen: Several calcified gallstones are present. Other visualized upper abdominal solid organs ap pear normal in the early arterial phase of enhancement. IMPRESSION: 1. No evidence for central pulmonary embolism. No acute pulmonary disease. 2. Cholelithiasis again noted. Dictated by: Wilner Ring M.D. on 07/03/2016 at 22:10 Approved by: Wilner Ring M.D. on 07/03/2016 at 22:15
[2016-07-03 23:30] VITALS: BP 118/58; PULSE 78; RESP 14; O2SAT 95
[2016-07-04] MEDS ORDERED: _HYDROcodone/APAP 5-325 mg Tablet PO PRN (00:05)
[2016-07-04 00:48] VITALS: BP 135/60; PULSE 81; RESP 17
== END 2016-07-04 00:49 | disposition home or self-care (01) ==
LOC: SED 19:37
DX: K80.20 Calculus of gallbladder without cholecystitis without obstruction (principal); R07.89 Other chest pain; J45.909 Unspecified asthma, uncomplicated; K21.9 Gastro-esophageal reflux disease without esophagitis; F41.9 Anxiety disorder, unspecified; Z86.73 Personal history of transient ischemic attack (TIA), and cerebral infarction without residual deficits; Z79.82 Long term (current) use of aspirin; Z87.891 Personal history of nicotine dependence; Z88.0 Allergy status to penicillin
CPT/HCPCS: 36415; 71010; 71275; 80053; 83735; 84484; 85025; 93005; 99285; Q9967